=== PATIENT | male | born 1945 | race Caucasian/White ===

== ENCOUNTER 2016-08-14 06:30 | Inpatient (IN) | payer OTHER, MEDICARE ==
[~2016-08-14 06:30] MED LIST: CHLORHEXIDINE GLUC HIBICLENS 118 ML BTL TP ONE; ceFAZolin 2 GM/DEXTROSE 100 ML IV ONE
[2016-08-14] MEDS ORDERED: THROMBIN (BOVINE) 5,000 UNIT VIAL TP ONE (06:40)
[2016-08-14] MEDS ORDERED: BUPIVACAINE/EPI 0.25% 30 ML SDV ONE (06:40)
[2016-08-14] MEDS ORDERED: BACITRACIN 50,000 UNITS/10 ML SYR IRR ONE (06:40)
[2016-08-14] MEDS ORDERED: LIDOCAINE 1% 5 ML SDV ONE (06:43)
[2016-08-14] MEDS ORDERED: MIDAZOLAM 2 MG/2 ML VIAL ONE (07:06)
[2016-08-14] MEDS ORDERED: PROPOFOL/EMULSION 500 MG/50 ML BOTTLE IV ONE ×2 (07:18→09:21)
[2016-08-14] MEDS ORDERED: fentaNYL 100 MCG/2 ML INJ ONE ×3 (07:18→07:19)
[2016-08-14] MEDS ORDERED: ROCURONIUM 50 MG/5 ML VIAL ONE (07:20)
[2016-08-14] MEDS ORDERED: KETAMINE 100 MG/10 ML SYR ONE (07:24)
[2016-08-14] MEDS ORDERED: ACETAMINOPHEN 325 MG TAB PO PRN (07:33)
[2016-08-14] MEDS ORDERED: ONDANSETRON 4 MG/2 ML VIAL IVP PRN (07:33)
[2016-08-14] MEDS ORDERED: ONDANSETRON DISINTEGRATING 4 MG TAB PO PRN (07:33)
[2016-08-14] MEDS ORDERED: MAGNESIUM HYDROXIDE 30 ML UDCUP PO PRN (07:33)
[2016-08-14] MEDS ORDERED: morphINE PCA 30 MG/30 ML PCA IV PRN (07:33)
[2016-08-14] MEDS ORDERED: LACTULOSE 20 GM/30 ML UDCUP PO PRN (07:33)
[2016-08-14] MEDS ORDERED: POLYETHYLENE GLYCOL 3350 17 GM PKT PO PRN (07:33)
[2016-08-14] MEDS ORDERED: HYDROmorphONE/DILAUDID 1 MG/ML SYR IVP PRN (07:33)
[2016-08-14] MEDS ORDERED: diphenhydrAMINE 25 MG CAP PO PRN (07:33)
[2016-08-14] MEDS ORDERED: DIAZEPAM 10 MG/2 ML SYR IVP PRN (07:33)
[2016-08-14] MEDS ORDERED: oxyCODONE IR 5 MG TAB PO PRN (07:33)
[2016-08-14] MEDS ORDERED: BISACODYL 10 MG SUPP PR PRN (07:33)
[2016-08-14] MEDS ORDERED: DIAZEPAM 5 MG TAB PO PRN (07:33)
[2016-08-14] MEDS ORDERED: NALOXONE HCL 0.4 MG/ML INJ IVP PRN (07:33)
[2016-08-14] MEDS ORDERED: METHOCARBAMOL 750 MG TAB PO PRN (07:33)
[2016-08-14] MEDS ORDERED: PHENYLEPHRINE 10 MG/ML SDV ONE (07:42)
[2016-08-14] MEDS ORDERED: NS W/ 20 KCl/L 1,000 ML IV SCH (07:45)
[2016-08-14] MEDS ORDERED: epHEDrine SULFATE 10 MG/ML SYR ONE ×2 (07:52→08:27)
[2016-08-14] MEDS ORDERED: ONDANSETRON 4 MG/2 ML VIAL ONE (10:12)
--- NOTE | 2016-08-14 11:26 | SOAPPROG ---
SOAP Progress Note Assessment/Plan: Post Op Check: S: Awake and alert. Pt with expected neck pain. UE complaints preop are better O: AFVSS/PERRLA/EOMI no droop CN 2-12 grossly intact +lt touch 5/5 BUE/BLE = CDI Neck soft and supple A/P: 71 yo male that is s/p ACDF C3/4 and C4/5 -orders in place -call with any questions or concerns -pt fit for hard collar -pt seen by Dr Harvey 08/14/16 11:23 ICD10 Worksheet Patient Problems: Problems Problem Status Onset Arthrodesis status Acute Cervical radiculitis Acute Cervical spinal stenosis Acute - ICD10 Problem Qualifiers (1) Cervical spinal stenosis (2) Cervical radiculitis (3) Arthrodesis status
[2016-08-14] MEDS: SENNOSIDES/DOCUSATE SODIUM TAB PO SCH ×2 (11:37→20:36)
[2016-08-14] MEDS: FAMOTIDINE 20 MG/NACL 50 ML IV SCH ×2 (11:37→20:35)
[2016-08-14] MEDS: LABETALOL HCL 200 MG TAB PO SCH (11:37)
[2016-08-14] MEDS: LISINOPRIL 10 MG TAB PO SCH (11:37)
--- NOTE | 2016-08-14 13:19 | GOP ---
[f rep st] OPERATIVE REPORT DATE OF OPERATION: 08/14/2016 SURGEON: Vandana Harvey MD MENTAL HEALTH NURSE PRACTITIONER: Adriano Jansen PA-C PREOPERATIVE DIAGNOSIS: Cervical instability C3-4, C4-5, cervical spondylolisthesis, cervical steno sis, cervical myelopathy, severe multilevel cervical spondylosis with severe disk degenerative newton es C3-4, C4-5, C5-6, C6-7. POSTOPERATIVE DIAGNOSIS: Cervical instability C3-4, C4-5, cervical spondylolisthesis, cervical sten osis, cervical myelopathy, severe multilevel cervical spondylosis with severe disk degenerative montilla ges C3-4, C4-5, C5-6, C6-7. PROCEDURE PERFORMED: Anterior cervical diskectomy with decompression spinal canal, and arthrodesis at C3-4, C4-5 ([id number], [id number]), anterior cervical instrumentation C3, C4, C5, same incision bone graft harvest, microscope, placement of biomechanical intervertebral device C3-4, C4-5, anterior cervical instrumentation C3, C4, C5. FINDINGS: ESTIMATED BLOOD LOSS: 150 cc. INDICATIONS: The patient is a 71-year-old with cervical myelopathy and tingling in his arms, and hi s MRI demonstrated severe cervical stenosis at C3-4 with cord compression, and we suggested decompre ssion there. He had significant subluxation at C3-4, C4-5, and we suggested decompression and stabi lization at C3-4, C4-5. There were severe degenerative changes at C5-6, C6-7, and these were stable , and he did have a degree of spinal cord stenosis there, however, it was not as severe as the upper levels of the cervical spine, and we did not want to treat the lower levels currently. He understo od that he may require additional surgery. He knew that he may develop the need for additional fixa tion. Posteriorly, the facet joints were very arthritic and it was unclear to me if we would get a reduction of the spondylolisthesis given the fact that the facet joints themselves appeared locked b y their degenerative change on CT scan. The risk of esophageal injury, carotid injury, recurrent la ryngeal nerve injury, spinal cord injury, hematoma, and dysphagia was discussed. He understood thes e risks. He wanted to proceed. DESCRIPTION OF PROCEDURE: Patient was taken to the operating room, placed in supine position. Gene ral anesthesia was begun. A midline shoulder roll was placed. Arms were tucked to the side. His n lacey was kept neutral, his occiput was extended. He was sterilely prepped and draped in the usual fa shion. A transverse incision was made in the rostral neck crease. The subcutaneous tissue was diss ected using Bovie cautery down through platysma. We then used a combination of sharp and blunt diss ection medial to the sternocleidomastoid, lateral to the strap muscles. We encountered the preverte bral space, shot a localizing x-ray, dissected the longus colli muscles off the spine at C3-4, C4-5, placed self-retaining retractor. We drilled and placed a distraction pin at C3 and C4, shot an x-r ay confirming this. We removed the C3-4 disk, and under the microscope, removed the cartilaginous e ndplates. We drilled and harvested subchondral bone for autologous grafting purposes. There was a large posterior shelf of bone that was also drilled away and harvested for autologous grafting purpo ses. We opened the dura, decompressed the thecal sac and the neural foramina bilaterally at C3-4. A nice decompression was obtained. By inserting an 8, then a 9, then a 10 mm intervertebral device we attempted to get full reduction of the spondylolisthesis at C3-4, but really would not move back into place. We even took a Celestin, twisted the Eclestin, elevating C3-4, and really splaying them widely in the facet joints posteriorly; we just did not allow any significant motion. There was slight red uction. We then chose an 8 mm implant, packed it with autologously harvested bone dust inserted at C3-4, and we were happy with the fit. We then turned likewise to the C4-5 level, where we distracte d there, removed the disk and cartilaginous endplates. We drilled and harvested subchondral bone fo r autologous grafting purposes, and here, too, we decompressed the thecal sac and the neural foramin a bilaterally. A nice decompression was obtained. We also tried to reduce again here, and encounte red really the same resistance at C3-4. We chose an 8 mm implant packed with autologously harvested bone dust inserted at C4-5. We were happy with the fit. We then drilled off the ventral osteophyt es of C3-4, C4-5. There was a large osteophyte coming off the C5-6 disk space, and we drilled this down, and the plate was a full 2.5 to 3 mm from this osteophyte and never touching. We chose a 44 m m plate, placed it down over the bone, increased the lordosis in the plate, put the screws at C3, 4, and 5, and locked them according to company specification. We shot a final x-ray. They were all i n excellent position. The plate sizing was perfect. We then achieved meticulous hemostasis. We th en closed the incision in multiple layers using Vicryl sutures. Steri-Strips were applied to the sk in. There were no complications. COMPLICATIONS: None. INSTRUMENTATION USED: A [employer] no caps plate with Wana intervertebral devices and hi gh angle caps with the exception of a medium angle cap on the right at C3. We used 16 mm screws. I t was a 44 mm plate. We increased the lordosis in the plate. /[id number]/MODL
[2016-08-14] MEDS: lamoTRIgine 100 MG TAB PO SCH (20:35)
[2016-08-14] MEDS: OXYBUTYNIN 5 MG EXT REL TAB PO SCH (20:36)
[2016-08-14] MEDS: LORazepam 1 MG TAB PO SCH (20:36)
[2016-08-14] MEDS: TRAVOPROST Z 0.004% 2.5 ML OPHT.BTL EACHEYE SCH (21:38)
[2016-08-14] MEDS: TEMAZEPAM 15 MG CAP PO PRN ×2 (21:38→22:40)
[2016-08-15] MEDS: HYDROCODONE/APAP 10/325 TAB PO PRN ×2 (02:16→08:26)
[2016-08-15] MEDS: LEVOTHYROXINE 25 MCG TAB PO SCH (06:14)
--- NOTE | 2016-08-15 07:34 | NEUSURGPN ---
Date of Surgery: 08/14/16 Post Op Day: 1 Assessment/Plan: Assessment: 71 yo male that is s/p ACDF C3/4 and C4/5 POD #1 Plan: -s/p ACDF C3/4 and C4/5: Pt with expected neck pain. LUE numbness better -post op xrays pending -collar at all times -PT/OT/ST pending -plan for rehab placement -orders in place -call with any questions or concerns -pt fit for hard collar already -pt seen by Dr Harvey 08/14/16 11:23 Subjective: Awake and alert. NAD. Eating/drinking and voiding. No f/c/n/v/d. No ferrera/cp/ sob/abd or gu complaints. Objective: AFVSS/PERRLA/EOMI no droop CN 2-12 grossly intact +lt touch 5/5 BUE/BLE = CDI Neck soft and supple, no induration Neuro Check Frequency: per routine Urinary Catheter in Place: No - Physician Discussed Patient with Dr.: Wes Patient Seen by : Wes Neurosurgery Physical Exam - Vitals, I&O, Labs I and O 08/14/16 08/15/16 08/16/16 05:59 05:59 05:59 Intake Total 1250 200 Output Total 150 Balance 1100 200 Intake: Oral (ml) 300 IV Intake (ml) 950 100 IV Infused (ml) 100 Famotidine 20 mg/NaCl 50 50 ml @ 200 mls/hr IV Q12HRS JAM Rx#:[id number] ceFAZolin 1 GM/DEXTROSE 50 50 ml @ 200 mls/hr IV Q8HRS JAM Rx#:[id number] Output: Estimated Blood Loss (ml) 150 Other: Intake Quantity Yes Sufficient Number of Voids Toilet 1 Vital Signs Temp Pulse Resp BP Pulse Ox 36.4 C 93 18 121/95 H 96 08/15/16 04:57 08/15/16 04:57 08/15/16 04:57 08/15/16 04:57 08/15/16 04:57 ICD10 Worksheet Patient Problems: Problems Problem Status Onset Arthrodesis status Acute Cervical radiculitis Acute Cervical spinal stenosis Acute - ICD10 Problem Qualifiers (1) Cervical spinal stenosis (2) Cervical radiculitis (3) Arthrodesis status
[2016-08-15] MEDS: LISINOPRIL 10 MG TAB PO SCH (08:24)
[2016-08-15] MEDS: LABETALOL HCL 200 MG TAB PO SCH (08:24)
[2016-08-15] MEDS: FAMOTIDINE 20 MG TAB PO SCH ×2 (08:25→21:06)
[2016-08-15] MEDS: SENNOSIDES/DOCUSATE SODIUM TAB PO SCH ×2 (08:25→21:08)
[2016-08-15] MEDS: LORazepam 1 MG TAB PO SCH (21:06)
[2016-08-15] MEDS: TRAVOPROST Z 0.004% 2.5 ML OPHT.BTL EACHEYE SCH (21:07)
[2016-08-15] MEDS: TEMAZEPAM 15 MG CAP PO PRN (21:07)
[2016-08-15] MEDS: OXYBUTYNIN 5 MG EXT REL TAB PO SCH (21:07)
[2016-08-15] MEDS: lamoTRIgine 100 MG TAB PO SCH (21:07)
[2016-08-16] MEDS: HYDROCODONE/APAP 10/325 TAB PO PRN ×2 (04:52→08:55)
[2016-08-16] MEDS: LEVOTHYROXINE 25 MCG TAB PO SCH (04:53)
[2016-08-16 08:03] VITALS: RESP 16; O2SAT 90
[2016-08-16] MEDS: SENNOSIDES/DOCUSATE SODIUM TAB PO SCH (08:47)
[2016-08-16] MEDS: LABETALOL HCL 200 MG TAB PO SCH (08:48)
[2016-08-16] MEDS: FAMOTIDINE 20 MG TAB PO SCH (08:48)
[2016-08-16] MEDS: LISINOPRIL 10 MG TAB PO SCH (08:49)
--- NOTE | 2016-08-16 08:49 | NEUSURGPN ---
Assessment/Plan: Assessment: 71 yo male that is s/p ACDF C3/4 and C4/5 POD #2 Plan: -s/p ACDF C3/4 and C4/5: Pt with expected neck pain. LUE numbness better -post op xrays show stable hardware -collar at all times -PT/OT/ST -Dispo: likely home later today if continues to do well -pt D/w Dr Harvey Subjective: Pt resting in bed, swallowing ok. Didn't sleep well. Wants to go home. Objective: AAOx3 NAD VSS MAEx4 Motor 5/5 BUE C collar on Incision cdi steri strips in place +LT Urinary Catheter in Place: No - Physician Discussed Patient with : Wes Neurosurgery Physical Exam - Vitals, I&O, Labs I and O 08/15/16 08/16/16 08/17/16 05:59 05:59 05:59 Intake Total 1250 1475 Output Total 150 Balance 1100 1475 Intake: Oral (ml) 300 1275 IV Intake (ml) 950 100 IV Infused (ml) 100 Famotidine 20 mg/NaCl 50 50 ml @ 200 mls/hr IV Q12HRS JAM Rx#:[id number] ceFAZolin 1 GM/DEXTROSE 50 50 ml @ 200 mls/hr IV Q8HRS JAM Rx#:[id number] Output: Estimated Blood Loss (ml) 150 Other: Intake Quantity Yes Yes Sufficient Number of Voids Toilet 1 3 Vital Signs Temp Pulse Resp BP Pulse Ox 36.9 C 81 16 115/84 H 90 L 08/16/16 08:00 08/16/16 08:00 08/16/16 08:00 08/16/16 08:00 08/16/16 08:00 ICD10 Worksheet Patient Problems: Problems Problem Status Onset Arthrodesis status Acute Cervical radiculitis Acute Cervical spinal stenosis Acute
[2016-08-16 13:08] VITALS: BP 100/69; PULSE 79; TEMP 98.1
[2016-08-17] MEDS ORDERED: ENOXAPARIN 40 MG/0.4 ML SYR SC SCH (09:00)
== END 2016-08-16 13:46 | disposition home or self-care (01) | DRG 473 ==
LOC: F3N 06:30 → PREINTOOBSV 16:01 → OBSVTOIN 08-15 07:19 → UNDODISIN 08-15 19:02
PROVIDERS: ADMIT Neurological Surgery; ATTEND Neurological Surgery
PROC: 0RG20A0 Fusion of 2 or more Cervical Vertebral Joints with Interbody Fusion Device, Anterior Approach, Anterior Column, Open Approach (ICD-10-PCS; principal; 2016-08-14 07:30)
PROC: 0RT30ZZ Resection of Cervical Vertebral Disc, Open Approach (ICD-10-PCS; principal; 2016-08-14 07:30)
PROC: 00NW0ZZ Release Cervical Spinal Cord, Open Approach (ICD-10-PCS; principal; 2016-08-14 07:30)
DX: M47.12 Other spondylosis with myelopathy, cervical region (principal); M43.12 Spondylolisthesis, cervical region; M50.31 Other cervical disc degeneration, high cervical region; M50.321 Other cervical disc degeneration at C4-C5 level; M50.322 Other cervical disc degeneration at C5-C6 level; M50.323 Other cervical disc degeneration at C6-C7 level; I11.9 Hypertensive heart disease without heart failure; N18.3 Chronic kidney disease, stage 3 (moderate); E03.9 Hypothyroidism, unspecified; R32 Unspecified urinary incontinence
CPT/HCPCS: 92526-GN; 92610-GN; 97116-GP; 97161-GP; 97166-GO; C1713; G8978-GP-CI; G8979-GP-CI; G8987-GO-CJ; G8988-GO-CI; G8996-GN-CH; G8997-GN-CH; J0690; J2250; J2370; J2405; J2704; J3010